=== PATIENT | male | born 1960 | race African-American/Black ===

== ENCOUNTER 2019-03-29 21:08 | Emergency (ER) | payer SELFPAY ==
[2019-03-29] MEDS ORDERED: Lidocaine 1% PF 5 ML VIAL ONE (21:22)
== END 2019-03-29 21:34 | disposition home or self-care (01) ==
LOC: SCSER 21:08
DX: L02.01 Cutaneous abscess of face (principal); I10 Essential (primary) hypertension; Z79.899 Other long term (current) drug therapy
CPT/HCPCS: 10060; J2001